=== PATIENT | female | born 1980 | race Hispanic/Latino ===

== ENCOUNTER 2018-02-17 20:18 | Emergency (ER) | payer SELFPAY | END 2018-02-17 22:08 | disposition home or self-care (01) | LOC: EDH 20:18 | DX: L98.499 Non-pressure chronic ulcer of skin of other sites with unspecified severity (principal); E11.9 Type 2 diabetes mellitus without complications; I10 Essential (primary) hypertension; F32.9 Major depressive disorder, single episode, unspecified; E78.5 Hyperlipidemia, unspecified; Z90.49 Acquired absence of other specified parts of digestive tract; Z79.84 Long term (current) use of oral hypoglycemic drugs; Z79.899 Other long term (current) drug therapy; Z72.0 Tobacco use | CPT/HCPCS: 99281 ==

== ENCOUNTER 2019-02-12 15:36 | Emergency (ER) | payer OTHER ==
[2019-02-12] MEDS ORDERED: ORPHENADRINE CITRATE 30 MG/ML ML ONE (16:26)
[2019-02-12] MEDS ORDERED: KETOROLAC TROMETHAMINE 60 MG/2 ML VIAL ONE (16:26)
== END 2019-02-12 17:41 | disposition home or self-care (01) ==
LOC: EDH 15:36
DX: S13.8XXA Sprain of joints and ligaments of other parts of neck, initial encounter (principal); S40.022A Contusion of left upper arm, initial encounter; S80.01XA Contusion of right knee, initial encounter; M54.5 Low back pain; I10 Essential (primary) hypertension; E78.5 Hyperlipidemia, unspecified; E11.9 Type 2 diabetes mellitus without complications; F41.9 Anxiety disorder, unspecified; F32.9 Major depressive disorder, single episode, unspecified; Z90.49 Acquired absence of other specified parts of digestive tract; Z72.0 Tobacco use; Z90.710 Acquired absence of both cervix and uterus; V47.5XXA Car driver injured in collision with fixed or stationary object in traffic accident, initial encounter; Y93.89 Activity, other specified; Y92.89 Other specified places as the place of occurrence of the external cause; Y99.8 Other external cause status
CPT/HCPCS: 72040; 72100; 73060; 73562; 96372 ×2; 99284; J1885; J2360

== ENCOUNTER 2021-02-17 20:57 | Emergency (ER) | payer OTHER ==
[2021-02-17] MEDS ORDERED: CYCLOBENZAPRINE HCL 10 MG TABLET ONE (21:56)
[2021-02-17] MEDS ORDERED: KETOROLAC TROMETHAMINE 60 MG/2 ML VIAL ONE (21:56)
[2021-02-17 22:18] LABS: BASOPHILS % (AUTO) 0.7 % (0.0-5.0); EOSINOPHILS % (AUTO) 3.2 % (0.0-8.0); HEMATOCRIT 40.4 % (36-48); LYMPHOCYTES % (AUTO) 37.8 % (21.0-51.0); MEAN CORPUSCULAR HEMOGLOBIN 30.4 pg (27.0-33.0); MEAN CORPUSCULAR HGB CONC 34.7 g/dL (32.0-36.0); MEAN CORPUSCULAR VOLUME 87.8 fL (79-99); MONOCYTES % (AUTO) 7.6 % (3.0-13.0); NEUTROPHILS % (AUTO) 50.4 % (40.0-77.0); PLATELET COUNT (AUTO) 265 K/uL (130-400); RED CELL DISTRIBUTION WIDTH 12.1 % (11.0-15.5)
[2021-02-17 22:41] LABS: ALBUMIN 3.5 g/dL (3.5-5.0); BILIRUBIN,TOTAL 0.3 mg/dL (0.2-1.0); TOTAL PROTEIN, SERUM 7.8 g/dL (6.0-8.3)
[2021-02-17] MEDS ORDERED: INSULIN HUMULIN R 100 UNIT/ML 3ML ONE (23:04)
== END 2021-02-18 00:21 | disposition home or self-care (01) ==
LOC: EDH 20:57
DX: M94.0 Chondrocostal junction syndrome [Tietze] (principal); R07.89 Other chest pain; E11.9 Type 2 diabetes mellitus without complications; E66.9 Obesity, unspecified; F41.9 Anxiety disorder, unspecified; F32.9 Major depressive disorder, single episode, unspecified; E78.5 Hyperlipidemia, unspecified; I10 Essential (primary) hypertension; Z90.49 Acquired absence of other specified parts of digestive tract; Z90.710 Acquired absence of both cervix and uterus; Z72.0 Tobacco use
CPT/HCPCS: 36415; 71045; 80053; 82948; 84484; 85025; 93005; 96361; 96372; 96374; 99285; J1815; J1885

== ENCOUNTER 2021-05-03 15:06 | Emergency (ER) | payer OTHER ==
[~2021-05-03] VITALS: Ht 165.1 cm; Wt 121.6 kg
[2021-05-03 15:08] VITALS: BP 109/71
[2021-05-03] MEDS ORDERED: KETOROLAC 60 MG VIAL (30MG/ML) IM ONE (16:30)
[2021-05-03] MEDS ORDERED: CYCLOBENZAPRINE HCL 10 MG TABLET PO ONE (16:30)
[2021-05-03] MEDS ORDERED: TRAM1TAB PO (17:04)
[2021-05-03] MEDS ORDERED: CYCL10 PO (17:04)
[2021-05-03 17:35] VITALS: BP 118/76
== END 2021-05-03 17:42 | disposition home or self-care (01) ==
LOC: EDH 15:52
DX: M54.5 Low back pain (principal); E66.9 Obesity, unspecified; E11.9 Type 2 diabetes mellitus without complications; E78.00 Pure hypercholesterolemia, unspecified; I10 Essential (primary) hypertension; Z79.1 Long term (current) use of non-steroidal anti-inflammatories (NSAID); Z68.41 Body mass index [BMI] 40.0-44.9, adult
CPT/HCPCS: 72131; 96372; 99284; J1885

== ENCOUNTER 2021-08-29 12:05 | Inpatient (IN) | payer OTHER ==
[~2021-08-29] VITALS: Ht 165.1 cm; Wt 124.6 kg
[~2021-08-29 12:05] MED LIST: CYCL10TA16 PO; TRAM1TAB PO
[2021-08-29] MEDS ORDERED: ZOSYN 3.375GM +NS 50ML IV SCH (12:30)
[2021-08-29 12:36] LABS: BASOPHILS % (AUTO) 0.6 % (0.0-5.0); EOSINOPHILS % (AUTO) 3.1 % (0.0-8.0); HEMATOCRIT 40.1 % (36-48); LYMPHOCYTES % (AUTO) 28.4 % (21.0-51.0); MEAN CORPUSCULAR HEMOGLOBIN 30.3 pg (27.0-33.0); MEAN CORPUSCULAR HGB CONC 34.2 g/dL (32.0-36.0); MEAN CORPUSCULAR VOLUME 88.7 fL (79-99); MONOCYTES % (AUTO) 9.5 % (3.0-13.0); PLATELET COUNT (AUTO) 219 K/uL (130-400); RED BLOOD CELL COUNT(AUTO) 4.52 MIL/uL (4.00-5.50); RED CELL DISTRIBUTION WIDTH 12.3 % (11.0-15.5); WHITE BLOOD COUNT (AUTO) 7.8 K/uL (4.8-10.8)
[2021-08-29] MEDS: HYDROCODONE/ACETAMINOPHEN 10/325 MG TAB PO SCH (12:39)
[2021-08-29] MEDS: ZOSYN 3.375GM+NS 50ML 50 ML IVPB SCH ×2 (12:39→17:18)
[2021-08-29 12:47] LABS: CREATININE 0.7 mg/dL (0.5-1.5)
[2021-08-29 12:48] LABS: APPEARANCE,URINE Clear (CLEAR); BILIRUBIN,URINE Negative (NEGATIVE); COLOR,URINE Yellow (YELLOW); GLUCOSE, URINE (UA) >=1000 mg/dL (NEGATIVE); HCG,QUAL RESULT NEGATIVE (NEGATIVE); KETONES,URINE 15 mg/dL (NEGATIVE); LEUKOCYTE ESTERASE ,URINE Negative (NEGATIVE); NITRATE,URINE Negative (NEGATIVE); OCCULT BLOOD,URINE Negative (NEGATIVE); PROTEIN,URINE Negative (NEGATIVE); UROBILINOGEN,URINE 0.2 mg/dL (0.2-1.0)
[2021-08-29 12:51] LABS: BACTERIA,URINE Rare /HPF (None Seen); RBC,URINE 0-1 /HPF (0-1); SQUAMOUS EPITHELIAL CELL,UR Rare /HPF (0-2); WBC,URINE 0-1 /HPF (0-1)
[2021-08-29 12:52] LABS: ALBUMIN 3.9 g/dL (3.5-5.0); BILIRUBIN,TOTAL 0.4 mg/dL (0.2-1.0); CRP QUANTITATIVE 59.7 mg/L (0.00-9.0); TOTAL PROTEIN, SERUM 8.3 g/dL (6.0-8.3)
[2021-08-29] MEDS ORDERED: LACTULOSE 20 GM/30 ML UDCUP PO PRN (13:30)
[2021-08-29] MEDS ORDERED: 0.9%NACL 1000ML 1,000 ML IV SCH ×2 (13:30)
[2021-08-29] MEDS ORDERED: ACETAMINOPHEN 325 MG TAB PO PRN ×2 (13:30)
[2021-08-29] MEDS ORDERED: LIDOCAINE HCL 1% 10 ML VIAL ONE (13:44)
[2021-08-29] MEDS: LIDOCAINE 1%-EPI 1:100,000 20 ML VIAL IJ SCH (14:00)
[2021-08-29 14:48] LABS: HEMOGLOBIN A1C 9.4 % (4.0-6.0)
[2021-08-29 16:00] VITALS: BP 112/68
[2021-08-29] MEDS: INSULIN HUMULIN R 100 UNIT/ML 3ML SQ SCH ×3 (16:30→20:39)
[2021-08-29] MEDS: CLINDAMYCIN IVPB 600MG/50ML 50 ML IV SCH ×2 (17:18→20:40)
[2021-08-29 20:00] VITALS: BP 130/80
[2021-08-29] MEDS: ONDANSETRON 4MG INJ IV PRN (20:39)
[2021-08-29] MEDS: INSULIN GLARGINE 100 UNITS/ML 10 ML VIAL SQ SCH (20:39)
[2021-08-29] MEDS: FAMOTIDINE 20MG VIAL IV SCH (20:40)
[2021-08-29] MEDS: MORPHINE 4 MG SYG IV PRN (20:42)
[2021-08-30] VITALS: BP 123/81
[2021-08-30] MEDS: ONDANSETRON 4MG INJ IV PRN (03:42)
[2021-08-30] MEDS: MORPHINE 4 MG SYG IV PRN ×2 (03:42→08:47)
[2021-08-30 04:00] VITALS: BP 100/70
[2021-08-30] MEDS: CLINDAMYCIN IVPB 600MG/50ML 50 ML IV SCH ×3 (05:35→20:52)
[2021-08-30] MEDS: INSULIN HUMULIN R 100 UNIT/ML 3ML SQ SCH ×7 (06:38→20:53)
[2021-08-30 08:00] VITALS: BP 101/66
[2021-08-30] MEDS: FAMOTIDINE 20MG VIAL IV SCH ×2 (08:47→20:54)
[2021-08-30 09:35] LABS: HEMATOCRIT 37.3 % (36-48); MEAN CORPUSCULAR HEMOGLOBIN 30.7 pg (27.0-33.0); MEAN CORPUSCULAR HGB CONC 33.8 g/dL (32.0-36.0); MEAN CORPUSCULAR VOLUME 90.8 fL (79-99); RED BLOOD CELL COUNT(AUTO) 4.11 MIL/uL (4.00-5.50); RED CELL DISTRIBUTION WIDTH 12.4 % (11.0-15.5); WHITE BLOOD COUNT (AUTO) 5.6 K/uL (4.8-10.8)
[2021-08-30 09:56] LABS: CREATININE 0.5 mg/dL (0.5-1.5); POTASSIUM 4.1 mmol/L (3.5-5.1)
[2021-08-30 12:00] VITALS: BP 101/55
[2021-08-30] MEDS: HYDROCODONE/ACETAMINOPHEN 10/325 MG TAB PO SCH (12:30)
[2021-08-30] MEDS: LIDOCAINE 1%-EPI 1:100,000 20 ML VIAL IJ SCH (14:00)
[2021-08-30] MEDS: MORPHINE 2 MG SYG IV PRN ×2 (14:40→20:54)
[2021-08-30] MEDS ORDERED: CLIN-141 PO (14:48)
[2021-08-30] MEDS ORDERED: METF-444 PO (14:55)
[2021-08-30] MEDS ORDERED: INSLAN SQ (14:55)
[2021-08-30 16:00] VITALS: BP 118/77
[2021-08-30 20:00] VITALS: BP 90/53
[2021-08-30] MEDS: INSULIN GLARGINE 100 UNITS/ML 10 ML VIAL SQ SCH (20:52)
[2021-08-31] VITALS: BP 105/61
[2021-08-31] MEDS: MORPHINE 2 MG SYG IV PRN (03:26)
[2021-08-31 04:00] VITALS: BP 121/76
[2021-08-31 04:55] LABS: HEMATOCRIT 37.4 % (36-48); MEAN CORPUSCULAR HEMOGLOBIN 30.4 pg (27.0-33.0); MEAN CORPUSCULAR HGB CONC 33.7 g/dL (32.0-36.0); MEAN CORPUSCULAR VOLUME 90.3 fL (79-99); RED BLOOD CELL COUNT(AUTO) 4.14 MIL/uL (4.00-5.50); RED CELL DISTRIBUTION WIDTH 12.3 % (11.0-15.5); WHITE BLOOD COUNT (AUTO) 5.5 K/uL (4.8-10.8)
[2021-08-31 05:05] LABS: CREATININE 0.5 mg/dL (0.5-1.5); POTASSIUM 4.5 mmol/L (3.5-5.1)
[2021-08-31] MEDS: CLINDAMYCIN IVPB 600MG/50ML 50 ML IV SCH ×2 (05:41→12:26)
[2021-08-31] MEDS: INSULIN HUMULIN R 100 UNIT/ML 3ML SQ SCH ×4 (06:03→12:24)
[2021-08-31 07:10] VITALS: BP 116/85
[2021-08-31 11:10] VITALS: BP 132/87
[2021-08-31] MEDS: FAMOTIDINE 20MG VIAL IV SCH (12:21)
[2021-08-31] MEDS: HYDROCODONE/ACETAMINOPHEN 10/325 MG TAB PO SCH (12:30)
[2021-08-31] MEDS: MORPHINE 4 MG SYG IV PRN (12:35)
[2021-08-31 15:00] VITALS: BP 142/90
[2021-10-05] MEDS ORDERED: DIVA250T45 PO (10:24)
[2021-10-05] MEDS ORDERED: EMPA25TA PO (10:24)
[2021-10-05] MEDS ORDERED: DULO60CA45 PO (10:24)
[2021-10-05] MEDS ORDERED: SITA1TAB6 PO (10:24)
[2021-10-05] MEDS ORDERED: PITA4TAB2 PO (10:24)
[2021-10-05] MEDS ORDERED: INSU100V12 SQ (10:24)
[2021-10-05] MEDS ORDERED: BREX0.5T PO (10:24)
[2021-10-05] MEDS ORDERED: TOLT4CAP PO (10:24)
[2021-10-05] MEDS ORDERED: PREG150C PO (10:24)
[2021-10-05] MEDS ORDERED: victoza PO (10:24)
[2021-10-05] MEDS ORDERED: NAPR-1023 PO (10:24)
[2021-10-05] MEDS ORDERED: INSU100C6 SQ ×2 (10:24)
[2021-10-05] MEDS ORDERED: LOSA50TA64 PO (10:24)
[2021-10-05] MEDS ORDERED: MECL-160 PO (10:24)
[2021-10-05] MEDS ORDERED: DEXL60CA3 PO (10:24)
[2021-10-05] MEDS ORDERED: DIVA500T52 PO (10:24)
[2021-10-05] MEDS ORDERED: DICL1TAB5 PO (10:24)
== END 2021-08-31 16:00 | disposition home health service (06) | DRG 603 ==
LOC: EDH 12:05 → OBSVTOIN 13:24 → INTOOBSV 13:24 → EDHIP 13:24 → 3DH 14:28
PROVIDERS: ADMIT Internal Medicine; ATTEND Internal Medicine
PROC: 0X950ZZ Drainage of Left Axilla, Open Approach (ICD-10-PCS; principal; 2021-08-29)
DX: L02.412 Cutaneous abscess of left axilla (principal); Z68.42 Body mass index [BMI] 45.0-49.9, adult; L03.112 Cellulitis of left axilla; E66.01 Morbid (severe) obesity due to excess calories; I10 Essential (primary) hypertension; E78.5 Hyperlipidemia, unspecified; E78.00 Pure hypercholesterolemia, unspecified; F41.9 Anxiety disorder, unspecified; F32.A Depression, unspecified; E11.9 Type 2 diabetes mellitus without complications; Z83.3 Family history of diabetes mellitus; Z82.49 Family history of ischemic heart disease and other diseases of the circulatory system
CPT/HCPCS: 36415; 71045; 76882; 80048; 80053; 81001; 81025; 82948; 83036; 83605; 84145; 85025; 85027; 85651; 86140; 87040; 87070; 87076; G0378; J1815; J2270; J2405; J2543; J3490; J7030

== ENCOUNTER 2021-10-06 09:41 | Day surgery (SDC) | payer OTHER ==
[2021-09-29 13:53] LABS: BASOPHILS % (AUTO) 0.8 % (0.0-5.0); EOSINOPHILS % (AUTO) 2.9 % (0.0-8.0); HEMATOCRIT 39.6 % (36-48); LYMPHOCYTES % (AUTO) 34.1 % (21.0-51.0); MEAN CORPUSCULAR HEMOGLOBIN 30.3 pg (27.0-33.0); MEAN CORPUSCULAR HGB CONC 34.8 g/dL (32.0-36.0); MONOCYTES % (AUTO) 9.1 % (3.0-13.0); NEUTROPHILS % (AUTO) 52.8 % (40.0-77.0); PLATELET COUNT (AUTO) 249 K/uL (130-400); RED BLOOD CELL COUNT(AUTO) 4.55 MIL/uL (4.00-5.50); RED CELL DISTRIBUTION WIDTH 11.9 % (11.0-15.5); WHITE BLOOD COUNT (AUTO) 6.3 K/uL (4.8-10.8)
[2021-09-29 13:57] LABS: CREATININE 0.6 mg/dL (0.5-1.5); POTASSIUM 3.9 mmol/L (3.5-5.1)
[~2021-10-06] VITALS: Ht 165.1 cm; Wt 125.9 kg
[2021-10-06] VITALS (16 sets, daily range): BP systolic 107–127; BP diastolic 67–85
[2021-10-06] MEDS: CEFAZOLIN SODIUM 1 GM VIAL IVP ONE ×2 (08:00→14:56)
[~2021-10-06 09:41] MED LIST changes: +BREX0.5T PO; -CYCL10TA16 PO; +DEXL60CA3 PO; +DICL1TAB5 PO; +DIVA250T45 PO; +DIVA500T52 PO; +DULO60CA45 PO; +EMPA25TA PO; +INSU100C6 SQ; +INSU100V12 SQ; +LOSA50TA64 PO; +MECL-160 PO; +NAPR-1023 PO; +PITA4TAB2 PO; +PREG150C PO; +SITA1TAB6 PO; +TOLT4CAP PO; -TRAM1TAB PO; +victoza PO
[2021-10-06] MEDS: 0.9%NACL 1000ML 1,000 ML IV SCH ×2 (10:47→15:56)
[2021-10-06] MEDS ORDERED: CEFAZOLIN SODIUM 1 GM VIAL ONE (12:14)
[2021-10-06] MEDS ORDERED: BUPIVACAINE/PF 0.5% 30ML VIAL ONE (14:28)
[2021-10-06] MEDS ORDERED: LIDOCAINE HCL 1% 20 ML VIAL ONE (14:28)
[2021-10-06] MEDS ORDERED: LIDOCAINE PF 100MG/5ML (2%) SYRINGE 5ML ONE (14:30)
[2021-10-06] MEDS ORDERED: ONDANSETRON 4MG INJ ONE (14:31)
[2021-10-06] MEDS ORDERED: NEOSTIGMINE 5MG/5ML SYR IV ONE (14:31)
[2021-10-06] MEDS ORDERED: PROPOFOL 10 MG/ML 20ML VIAL IV ONE (14:31)
[2021-10-06] MEDS ORDERED: GLYCOPYRROLATE 1 MG/5 ML SYRINGE ONE (14:31)
[2021-10-06] MEDS ORDERED: ROCURONIUM 10MG/1ML SYR 10 MG/ML ML ONE (14:31)
[2021-10-06] MEDS ORDERED: MIDAZOLAM HCL 1 MG/ML 2ML VIAL ONE (14:31)
[2021-10-06] MEDS ORDERED: FENTANYL CITRATE PF 50 MCG/1 ML 2ML VIAL ONE ×2 (14:32→15:54)
== END 2021-10-06 17:20 | disposition home or self-care (01) ==
LOC: DAH 09:41
PROVIDERS: ATTEND Student in an Organized Health Care Education/Training Program
DX: D17.1 Benign lipomatous neoplasm of skin and subcutaneous tissue of trunk (principal); Z20.822 Contact with and (suspected) exposure to COVID-19; L73.2 Hidradenitis suppurativa; E11.9 Type 2 diabetes mellitus without complications; I10 Essential (primary) hypertension; F43.10 Post-traumatic stress disorder, unspecified; F41.9 Anxiety disorder, unspecified; F32.9 Major depressive disorder, single episode, unspecified; M19.90 Unspecified osteoarthritis, unspecified site; E78.5 Hyperlipidemia, unspecified; Z90.49 Acquired absence of other specified parts of digestive tract; Z90.710 Acquired absence of both cervix and uterus; Z82.49 Family history of ischemic heart disease and other diseases of the circulatory system; Z83.3 Family history of diabetes mellitus; Z83.438 Family history of other disorder of lipoprotein metabolism and other lipidemia; Z82.0 Family history of epilepsy and other diseases of the nervous system; Z79.899 Other long term (current) drug therapy; Z98.890 Other specified postprocedural states
CPT/HCPCS: 21931; 36415; 80048; 82948 ×2; 85025; 87635; A4215; A4221; A4222; A4223; A4663; A4930 ×2; A6260; C9803; G0168; J0690; J2001; J2250; J2405; J2704; J2710; J3010 ×2; J3490 ×2

== ENCOUNTER 2022-03-12 23:45 | Emergency (ER) | payer OTHER ==
[~2022-03-12] VITALS: Ht 165.1 cm; Wt 130.2 kg
[2022-03-13 00:18] LABS: BASOPHILS % (AUTO) 0.3 % (0.0-5.0); EOSINOPHILS % (AUTO) 0.1 % (0.0-8.0); HEMATOCRIT 36.5 % (36-48); LYMPHOCYTES % (AUTO) 14.1 % (21.0-51.0); MEAN CORPUSCULAR HEMOGLOBIN 30.6 pg (27.0-33.0); MEAN CORPUSCULAR HGB CONC 34.5 g/dL (32.0-36.0); MEAN CORPUSCULAR VOLUME 88.6 fL (79-99); NEUTROPHILS % (AUTO) 72.9 % (40.0-77.0); PLATELET COUNT (AUTO) 217 K/uL (130-400); RED BLOOD CELL COUNT(AUTO) 4.12 MIL/uL (4.00-5.50); WHITE BLOOD COUNT (AUTO) 11.7 K/uL (4.8-10.8)
[2022-03-13 00:25] LABS: APPEARANCE,URINE Cloudy (CLEAR); BILIRUBIN,URINE Negative (NEGATIVE); COLOR,URINE Dark Yellow (YELLOW); GLUCOSE, URINE (UA) >=1000 mg/dL (NEGATIVE); KETONES,URINE 15 mg/dL (NEGATIVE); LEUKOCYTE ESTERASE ,URINE Small (NEGATIVE); NITRATE,URINE Negative (NEGATIVE); OCCULT BLOOD,URINE Moderate (NEGATIVE); PROTEIN,URINE POS 2+ mg/dL (NEGATIVE)
[2022-03-13 00:27] LABS: HCG,QUAL RESULT NEGATIVE (NEGATIVE)
[2022-03-13] MEDS ORDERED: ACETAMINOPHEN 500 MG TABLET PO ONE (00:30)
[2022-03-13 00:34] LABS: ALBUMIN 2.8 g/dL (3.5-5.0); BILIRUBIN,TOTAL 0.8 mg/dL (0.2-1.0); CREATININE 1.1 mg/dL (0.5-1.5); POTASSIUM 3.2 mmol/L (3.5-5.1); TOTAL PROTEIN, SERUM 7.7 g/dL (6.0-8.3)
[2022-03-13 00:52] LABS: ABG BASE EXCESS 0.7 mmol/L (-2.0-3.0); ABG HCO3 21.7 mmol/L (21.0-28.0); ABG OXYGEN SATURATION 96.4 % (95.0-99.0); ABG PCO2 26 mmHg (32-45)
[2022-03-13 00:56] LABS: BACTERIA,URINE Many /HPF (None Seen); WBC,URINE 26-50 /HPF (0-1)
[2022-03-13] MEDS ORDERED: CEFTRIAXONE 1G VIAL IVP ONE (02:30)
[2022-03-13] MEDS ORDERED: 0.9%NACL 1000ML 1,000 ML IV ONE (02:30)
[2022-03-13] MEDS ORDERED: CEPH500B PO (04:48)
[2022-03-13] MEDS ORDERED: ACET-66 PO (04:48)
[2022-03-13] MEDS ORDERED: INSULIN HUMULIN R 100 UNIT/ML 3ML ONE (05:08)
[2022-03-13 05:37] VITALS: BP 112/67
[2022-03-13] MEDS ORDERED: INSULIN HUMULIN R 100 UNIT/ML 3ML SQ SCH (07:30)
== END 2022-03-13 05:36 | disposition home or self-care (01) ==
LOC: EDH 23:45
DX: N39.0 Urinary tract infection, site not specified (principal); R50.9 Fever, unspecified; E11.65 Type 2 diabetes mellitus with hyperglycemia; Z20.822 Contact with and (suspected) exposure to COVID-19; E78.00 Pure hypercholesterolemia, unspecified; I10 Essential (primary) hypertension; E03.9 Hypothyroidism, unspecified; Z98.890 Other specified postprocedural states; Z90.49 Acquired absence of other specified parts of digestive tract; Z79.899 Other long term (current) drug therapy; Z79.4 Long term (current) use of insulin
CPT/HCPCS: 36415; 36600; 71045; 80053; 81001; 81025; 82803; 82948; 83605; 85025; 87040 ×2; 87077; 87088; 87186; 87635; 87804 ×2; 96361; 96372; 96374; 99285; C9803; J0696; J1815; J7030

== ENCOUNTER 2023-06-19 00:50 | Emergency (ER) | payer OTHER ==
[~2023-06-19] VITALS: Ht 165.1 cm; Wt 122.9 kg
[~2023-06-19 00:50] MED LIST changes: +ACET-66 PO; +CEPH500B PO
[2023-06-19 00:51] VITALS: BP 103/77; PULSE 90; RESP 18
[2023-06-19] MEDS ORDERED: KETOROLAC 60 MG VIAL (30MG/ML) IM ONE (04:00)
[2023-06-19] MEDS ORDERED: CEFTRIAXONE 2GM VIAL IJ ONE (04:00)
[2023-06-19] MEDS ORDERED: CEPH500B PO (04:03)
[2023-06-19] MEDS ORDERED: LIDOCAINE HCL 1% 20 ML VIAL ONE (04:14)
== END 2023-06-19 04:37 | disposition home or self-care (01) ==
LOC: EDH 00:50
DX: L03.116 Cellulitis of left lower limb (principal); F41.9 Anxiety disorder, unspecified; M19.90 Unspecified osteoarthritis, unspecified site; F32.A Depression, unspecified; E11.9 Type 2 diabetes mellitus without complications; E78.00 Pure hypercholesterolemia, unspecified; E03.9 Hypothyroidism, unspecified; I10 Essential (primary) hypertension; Z79.4 Long term (current) use of insulin; Z79.84 Long term (current) use of oral hypoglycemic drugs; Z79.899 Other long term (current) drug therapy; Z90.49 Acquired absence of other specified parts of digestive tract
CPT/HCPCS: 99284; 96365; 96372; J0696; J1885

== ENCOUNTER 2023-11-24 10:39 | Emergency (ER) | payer BC, OTHER ==
[~2023-11-24] VITALS: Ht 165.1 cm; Wt 121.6 kg
[~2023-11-24 10:39] MED LIST changes: -MECL-160 PO; +MECL-302 PO
[2023-11-24] MEDS ORDERED: IBUP-2077 PO (12:16)
[2023-11-24] MEDS: DEXAMETHASONE SOD PHOSPHATE 4 MG/ML 1ML VIAL IM ONE (12:52)
[2023-11-24] MEDS: IBUPROFEN 800 MG TAB PO ONE (12:53)
[2023-11-24 13:14] VITALS: BP 146/76; PULSE 76; RESP 18; O2SAT 99
== END 2023-11-24 13:15 | disposition home or self-care (01) ==
LOC: EDH 10:39
DX: M25.512 Pain in left shoulder (principal); E11.9 Type 2 diabetes mellitus without complications; E78.00 Pure hypercholesterolemia, unspecified; F41.9 Anxiety disorder, unspecified; I10 Essential (primary) hypertension; M19.90 Unspecified osteoarthritis, unspecified site; Z79.4 Long term (current) use of insulin; Z79.84 Long term (current) use of oral hypoglycemic drugs; Z79.899 Other long term (current) drug therapy; Z90.49 Acquired absence of other specified parts of digestive tract; Z90.710 Acquired absence of both cervix and uterus
CPT/HCPCS: 99284; 73030; 96372; J1100

== ENCOUNTER → 2024-06-12 | Outpatient (CLI) | payer OTHER ==
[~2024-06-12] MED LIST changes: +IBUP-2077 PO; +KETO10 PO; +METH-662 PO
== END | disposition home or self-care (01) ==
LOC: RAH 09:14
PROVIDERS: ATTEND Internal Medicine Cardiovascular Disease
DX: Z13.6 Encounter for screening for cardiovascular disorders (principal)
CPT/HCPCS: 75571

== ENCOUNTER 2024-06-27 12:35 | Emergency (ER) | payer BC, OTHER ==
[~2024-06-27] VITALS: Ht 165.1 cm; Wt 113.4 kg
[2024-06-27 13:54] VITALS: BP 139/82; PULSE 77; RESP 20; TEMP 98.1; O2SAT 99
== END 2024-06-27 13:57 | disposition home or self-care (01) ==
LOC: EDH 12:35
DX: H65.192 Other acute nonsuppurative otitis media, left ear (principal); F41.9 Anxiety disorder, unspecified; E11.9 Type 2 diabetes mellitus without complications; F32.A Depression, unspecified; E03.9 Hypothyroidism, unspecified; I10 Essential (primary) hypertension; M19.90 Unspecified osteoarthritis, unspecified site; E78.00 Pure hypercholesterolemia, unspecified; Z79.4 Long term (current) use of insulin; Z79.84 Long term (current) use of oral hypoglycemic drugs; Z79.899 Other long term (current) drug therapy; Z90.710 Acquired absence of both cervix and uterus; Z90.49 Acquired absence of other specified parts of digestive tract
CPT/HCPCS: 99281